=== PATIENT | female | born 1955 | race Caucasian/White ===

== ENCOUNTER 2020-02-06 08:22 | Outpatient (CLI) | payer OTHER, SELFPAY ==
[2020-02-06 12:36] LABS: Basophils Absolute Auto 0.1 K/mm3 (0.0-0.1); Basophils Percent Auto 1.2 % (0.2-1.2); Eosinophils Absolute Auto 0.1 K/mm3 (0-0.3); Eosinophils Percent Auto 2.1 % (0-4.4); Hematocrit 40.3 % (37.0-47.0); Hemoglobin 13.7 g/dL (12.0-15.0); Immature Granulocyte Absolute 0.01 K/mm3 (0.00-0.031); Immature Granulocyte Percent A 0.2 % (0-0.5); Lymphocytes Percent Auto 47.4 % (18.3-44.2); Mean Corpuscular Hemoglobin 33.7 pg (26-34); Mean Corpuscular Volume 99.3 fl (80-100); Monocytes Absolute Auto 0.7 K/mm3 (0.1-0.6); Monocytes Percent Auto 13.6 % (2.6-8.5); Neutrophils Absolute Auto 1.7 K/mm3 (1.3-6.7); Neutrophils Percent Auto 35.5 % (45.5-73.1); Platelet Count Result 303 k/mm3 (150-375); Red Blood Count 4.06 M/mm3 (4.2-5.4); Red Cell Distribution Width 11.6 % (11.5-14.5); White Blood Count 4.9 K/mm3 (4.5-10.0)
[2020-02-06 12:41] LABS: Add Urine Microscopic? YES; Appearance Urine Cloudy (Clear); Bacteria Urine 4+ /hpf; Bilirubin Urine Negative (Negative); Blood Urine Negative (Negative); Color Urine Yellow (Yellow); Glucose Urine UA Negative (Negative); Ketones Urine Trace mg/dL (Negative); Leukocyte Esterase Ur Negative LEU/UL (Negative); Mucus Urine Rare /lpf; Nitrate Urine Negative (Negative); Protein Urine Negative (Negative); RBC Urine 0-2 /hpf (0-2); Specific Grav Ur 1.019 (1.001-1.035); Squamous Epithelial Cell Urine Many /hpf (Few); Urobilinogen Urine Negative mg/dL (<2.0); WBC Urine 0-3 /hpf
[2020-02-06 12:42] LABS: Alanine Aminotransferase 36 U/L (4-35); Albumin Level 4.3 g/dL (3.5-5.1); Alkaline Phosphatase 70 U/L (38-126); Anion Gap 7 mmol/L (8-16); Aspartate Amino Transferase 37 U/L (14-36); Bilirubin,Total 0.4 mg/dL (0.2-1.3); Blood Urea Nitrogen 14 mg/dL (7-17); Calcium 9.1 mg/dL (8.4-10.2); Carbon Dioxide 28 mmol/L (22-30); Chloride 101 mmol/L (98-107); Cholesterol 210 mg/dL (0-200); Estimated Glomerular Filt Rate > 60; Glucose 98 mg/dL (65-105); HDL Direct 94 mg/dL; Potassium 4.4 mmol/L (3.4-5.0); Sodium 136 mmol/L (137-145); Triglycerides 94 mg/dL (<150)
[2020-02-06 12:43] LABS: Hemoglobin A1C 5.5 % (<5.7)
[2020-02-06 12:53] LABS: LDL Cholesterol Direct 96 mg/dL
[2020-02-06 13:38] LABS: Free T4 Free Thyroxine 0.91 ng/mL (0.78-2.19)
== END 2020-02-06 08:23 | disposition home or self-care (01) ==
PROVIDERS: Visit Provider Physician Assistant
DX: Z00.01 Encounter for general adult medical examination with abnormal findings (principal); Z13.6 Encounter for screening for cardiovascular disorders; Z13.1 Encounter for screening for diabetes mellitus
CPT/HCPCS: 36415; 80053; 80061; 81001; 83036; 84439; 84443; 85025

== ENCOUNTER 2020-04-13 08:43 | Outpatient (CLI) | payer OTHER, SELFPAY ==
[2020-04-13 10:51] LABS: Hematocrit 42.2 % (37.0-47.0); Hemoglobin 14.3 g/dL (12.0-15.0); Mean Corpuscular HGB Conc 33.9 g/dl (32-36); Mean Corpuscular Hemoglobin 32.9 pg (26-34); Mean Platelet Volume 8.6 fl (7.4-10.4); Platelet Count Result 326 k/mm3 (150-375); Red Blood Count 4.35 M/mm3 (4.2-5.4); Red Cell Distribution Width 11.8 % (11.5-14.5); White Blood Count 5.2 K/mm3 (4.5-10.0)
[2020-04-13 11:41] LABS: Anion Gap 10 mmol/L (8-16); Blood Urea Nitrogen 16 mg/dL (7-17); Calcium 9.7 mg/dL (8.4-10.2); Carbon Dioxide 27 mmol/L (22-30); Chloride 99 mmol/L (98-107); Estimated Glomerular Filt Rate > 60; Glucose 99 mg/dL (65-105); Potassium 4.8 mmol/L (3.4-5.0); Sodium 136 mmol/L (137-145)
[2020-04-13 11:49] LABS: INR 0.8; Partial Thromboplastin Time 24.8 SECONDS (22.3-36.8); Prothrombin Time 11.8 Seconds (11.1-14.7)
[2020-04-13 11:53] LABS: Hemoglobin A1C 5.4 % (<5.7)
== END 2020-04-13 08:44 | disposition home or self-care (01) ==
PROVIDERS: PCP Physician Assistant
DX: M17.9 Osteoarthritis of knee, unspecified (principal); M16.9 Osteoarthritis of hip, unspecified
CPT/HCPCS: 36415; 80048; 83036; 85027; 85610; 85730

== ENCOUNTER 2020-06-22 12:30 | Outpatient (RCR) | payer OTHER, SELFPAY ==
--- NOTE | 2020-04-28 16:48 | PTOPEVAL ---
PHYSICAL THERAPY EVALUATION AND PLAN OF CARE Thank you for referring Ubaldo Preston to [facility].? The patient is scheduled to be seen for therapy? 2x/week for 4-8 weeks. Please review, sign, date and return this plan of care BOSSMAN. I agree with and certify that the following plan of care is medically necessary. Referring Physician Date Attending Provider: Benji Cowart Evaluation Diagnosis left hip arthroplasty on 2020 Subjective Information Ubaldo is here today for a pre- Query Text:As Reported By Patient/ operative appointment prior to Family left WILMER on 05/03/2020. She has 2 steps to enter the home. Her major concern is getting in and out of bed. She will have standard hip precautions following the surgery and the surgey is posterior approach. She will have this as an outpatient procedure. Self Report Pain Assessment Left Hip(s) Reported Pain Level 8 Pain Description Aching Pain Score Pain Score 8: Self Report Interventions Used Interventions Used By Clinicians Exercise Pain Relief Interventions Used By Elevation,Medication Patient Lower Extremity Range of Motion Hip Range of Motion Left Hip Flexion Range of Motion - Active 85 Hip Extension Range of Motion - Passive 5 Bed Mobility Assessment Bed Mobility Bed Mobility Assistive Devices Leg Turkey Pinner Bed Type Mat Overall Bed Mobility Ability Standby Assistance Supine to Sit Ability Standby Assistance Sit to Supine Ability Standby Assistance Cues Needed for Bed Mobility Tactile,Verbal,Visual Bed Mobility Comments educated patient on how to enter/exit bed without breaking hip precautions; educated on how to use a lift to bring leg up and bring leg down; discussed standard hip precautions at length including avoiding greater than 90deg of hip flexion, hip internal rotation, and hip adduction and discussed the various scenerios in which those precautions might be broken Gait Assessment Gait Assessment Ambulation Assistive Devices Walker, Wheeled Weight Bearing Status - Left As Tolerated Weight Bearing Status - Right Full Maintains Weight Bearing Status Yes
--- NOTE | 2020-05-05 14:46 | PTOPEVAL ---
PHYSICAL THERAPY POST-SURGICAL PLAN OF CARE UPDATE Thank you for referring Ubaldo Preston to [facility].? Current patient schedule for physical therapy 2x/week for 4 weeks continues to be appropriate. Please review, sign, date and return this plan of care BOSSMAN. I agree with and certify that the following plan of care is medically necessary. Referring Physician Date Attending Provider: Benji Cowart Progress Diagnosis left hip arthroplasty on 2020 Subjective Information Ubaldo is here today 2 days s/p Query Text:As Reported By Patient/ left WILMER. She reports today Family is better for pain than yesterday. Her daughter is helping her to move her left in and out of bed, but is getting around the home with her walker fine. Self Report Pain Assessment Left Hip(s) Reported Pain Level 5 Pain Description Aching Pain Score Pain Score 5: Self Report Interventions Used Interventions Used By Clinicians Exercise Pain Relief Interventions Used By Elevation,Medication Patient Lower Extremity Range of Motion Hip Range of Motion Left Hip Flexion Range of Motion - Active 85 Hip Extension Range of Motion - Passive 0 Hip Range of Motion Comments patient was concerned about left hip IR when in supine - assessed positioning today and she appears in neutral; instructed that she is to pay attention with performing exercises to ensure neutral hip Lower Extremity Muscle Strength Testing Hip Strength Left Hip Flexion Strength 3- Fair - Hip Extension Strength 3- Fair - Hip Abduction Strength 3 Fair Hip Strength Comments difficulty performing AROM due to pain - strength should progress quickly Palpation Assessment Palpation Palpation edema noted to left thigh and glutes with mild warmth to touch Bed Mobility Assessment Bed Mobility Bed Mobility Assistive Devices Leg Gasoline Attendant Bed Type Mat Overall Bed Mobility Ability Minimum Assistance X 1 Supine to Sit Ability Contact Guard Sit to Supine Ability Minimum Assistance X 1 Cues Needed for Bed Mobility Tactile,Verbal,Visual Bed Mobility Comments assist of left LE on and off of mat table Gait Assessment Gait Assessment Ambulation Assistive Devices Walker, Wheele
--- NOTE | 2020-06-01 11:53 | PTOPEVAL ---
PHYSICAL THERAPY PROGRESS REPORT AND PLAN OF CARE UPDATE Thank you for referring Ubaldo Preston to [facility].? The patient is scheduled to be seen for therapy? 1x/week for 2-4 weeks. Please review, sign, date and return this plan of care BOSSMAN. I agree with and certify that the following plan of care is medically necessary. Referring Physician Date Attending Provider: Benji Cowart Progress Diagnosis left hip arthroplasty on 2020 Subjective Information Ubaldo is here today 4 weeks s/ Query Text:As Reported By Patient/ p left WILMER. She saw PA Family yesterday - Ubaldo will be allowed to roll on her side and use a regular toilet at 8 weeks s/p WILMER. She was okayed to drive. Ubaldo continues to have concerns about feeling like the left leg in longer than the right - the PA was not concerned until 12 weeks post op. Ubaldo is no longer using assistive device. Self Report Self Report Pain Level 0 Pain Score Pain Score 0: Self Report Lower Extremity Range of Motion Hip Range of Motion Left Reason Not Measured Surgery Precautions Hip Flexion Range of Motion - Active 90 Hip Extension Range of Motion - Passive 0 Hip Range of Motion Comments . Lower Extremity Muscle Strength Testing Hip Strength Left Hip Flexion Strength 3+ Fair + Hip Extension Strength 3 Fair Hip Abduction Strength 3 Fair Hip Strength Comments . Knee Strength Left Knee Flexion Strength 4 Good Knee Extension Strength 4 Good Palpation Assessment Palpation Palpation no edema noted to left LE at this time; incision well healed with mild scar tissue noted under incision site Gait Assessment Gait Assessment Ambulation Assistive Devices None Weight Bearing Status - Left Full Weight Bearing Status - Right Full Maintains Weight Bearing Status Yes Ambulation Surface Level,Smooth Ambulation Ability Independent Cues Needed For Ambulation Verbal,Tactile Additional Ambulation Comments . Gait Pattern Assessment Gait Pattern Antalgic Gait Other Gait Observations right hip hike in swing phase; right hip drop in stance phase PT Clinical Summary Ubaldo is a 65 yo female presenting to outpatient
--- NOTE | 2020-06-22 13:20 | PTOPEVAL ---
Thank you for referring Ubaldo Preston to [facility].? Pt has received 13 therapy visits to address impairments related to hip surgery. She has achieved maximal potential with skilled therapy services at this time. DC skilled therapy with Ubaldo to continue with her home program. Please review, sign, date and return this discharge summary BOSSMAN. I agree with and certify that the following plan of care is medically necessary. Referring Physician Date Attending Provider: Benji Cowart Physical Therapy Discharge Note Problem Diagnosis left hip arthroplasty on 2020 Additional Evaluation Detail Ubaldo will be allowed to roll on her side and use a regular toilet at 8 weeks s/p WILMER Subjective Information She c/o left leg feeling heavy Query Text:As Reported By Patient/ with soreness with standing Family and prolonged sitting in the car. She does not feel like leg is normal. She is performing her HEP daily. She continues to struggle with getting out of a chair.She questions when to RTW. She negotiates Pain Assessment Self Report Pain Level 0 Pain Score Lower Extremity Muscle Strength Testing Hip Strength Left Hip Flexion Strength 3+ Fair + Hip Extension Strength 3 Fair Hip Abduction Strength 3 Fair Hip Strength Comments able to perform full range bridge for glut strength Knee Strength Left Knee Flexion Strength 4+ Good + Knee Extension Strength 5 Normal Knee Strength Comments hamstring tested in supine position Balance Assessment Timed Up and Go Test (TUG) (Seconds) 14 Assistive Devices None 5 Time Sit to Stand Time in Seconds 17 5 Time Sit to Stand Comments no changes in muscle soreness, Gait Assessment Gait Pattern Antalgic Gait,Wide Based Gait Gait Pattern Observed Decreased Stride Length - Left ,Decreased Stride Length - Right,Decreased Weight Shift - Left,No Heel Strike - Left,No Heel Strike - Right,Trunk Lateral Lean - Left Other Gait Observations right hip hike in swing phase 2 Minute Walk Total Distance Walked (feet) 195 2 Minute Walk Gait Speed Score (feet/ 1.62 second) Stair Climbing Assessment Stair Climbing Assistive Devices Railings Weight Bearing Status - Left As Tolerated Weight Bearing Status - Right Full Maintains Weight Bearing Status
== END 2020-06-23 08:53 | disposition home or self-care (01) ==
LOC: ANHPT 12:30
PROVIDERS: PCP Physician Assistant
DX: Z47.1 Aftercare following joint replacement surgery (principal); Z96.642 Presence of left artificial hip joint
CPT/HCPCS: 97110; 97116; 97140; 97161; 97530

== ENCOUNTER 2020-10-10 16:15 | Outpatient (RCR) | payer OTHER, SELFPAY ==
--- NOTE | 2020-09-13 16:38 | PTOPEVAL ---
PHYSICAL THERAPY EVALUATION AND PLAN OF CARE Thank you for referring Ubaldo Preston to [facility].? The patient is scheduled to be seen for therapy?for follow-up in one month. Please review, sign, date and return this plan of care BOSSMAN. I agree with and certify that the following plan of care is medically necessary. Referring Physician Date Attending Provider: Kenney Anguiano, PA-C Evaluation Diagnosis history of WILMER Onset 04/2020 Subjective Information Ubaldo is here today with Query Text:As Reported By Patient/ history of left WILMER. She was Family initially discharged from PT in June 2020. She reports she is not having a lot of pain, but she still limps. She feels as though the left leg is longer than the right. She tried to wear a heel lift in the right shoe, but by the end of the day it made her right hip and back hurt so she wondered if the lift made her uneven or if it evened her out and she is not used to it. Self Report Pain Assessment Left Hip(s) Reported Pain Level 0 Pain Score Pain Score 0: Self Report Interventions Used Interventions Used By Clinicians Exercise Lower Extremity Range of Motion Hip Range of Motion Left Hip Flexion Range of Motion - Active 115 Hip Medial Rotation - Passive 20 Hip Lateral Rotation - Passive 35 Hip Range of Motion Comments right hip internal rotation: 35deg right hip external rotation: 60deg Lower Extremity Muscle Strength Testing Hip Strength Left Hip Flexion Strength 4+ Good + Hip Extension Strength 4 Good Hip Abduction Strength 4 Good Ankle Strength Left Ankle Dorsiflexion Strength 4 Good Ankle Eversion Strength 4 Good Ankle Inversion Strength 4+ Good + Ankle Strength Comments 04/10 unilateral left heel raises Muscle Length Testing Muscle Length Testing Gregorio Test Shortened Muscles Short (L) Iliopsoas,Short (L) Ilial Tib Band Wade's Test Hip Muscle Length (L) Moderate Tightness Gastrocnemius Length (R) Moderate Tightness,(L) Moderate Tightness Gait Assessment Gait Pattern Assessment Other Gait Observations launches off of right foot with early heel off; occasional toe drag of left General Exercise General Exercises
--- NOTE | 2020-10-10 16:28 | PTOPEVAL ---
PHYSICAL THERAPY DISCHARGE NOT E Thank you for referring Ubaldo Preston to [facility].? Please review, sign, date and return this plan of care BOSSMAN. I agree with and certify that the following plan of care is medically necessary. Referring Physician Date Attending Provider: Kenney Anguiano, PA-C Discharge Diagnosis history of WILMER Onset 04/2020 Subjective Information Ubaldo is here today with Query Text:As Reported By Patient/ history of left WILMER. Ubaldo Family reports that she feels like she is week by week improving and that getting better is taking longer than she thought it would take. Self Report Pain Assessment Left Hip(s) Reported Pain Level 0 Pain Score Pain Score 0: Self Report Interventions Used Interventions Used By Clinicians Exercise Lower Extremity Muscle Strength Testing Hip Strength Left Hip Flexion Strength 5 Normal Hip Extension Strength 4 Good Hip Abduction Strength 5 Normal Hip Medial Rotation Strength 3+ Fair + Hip Lateral Rotation Strength 4 Good Ankle Strength Left Ankle Dorsiflexion Strength 5 Normal Ankle Eversion Strength 5 Normal Ankle Inversion Strength 5 Normal Ankle Strength Comments unilateral left heel raises Gait Assessment Gait Pattern Assessment Other Gait Observations overall improvement of gait pattern from a month ago; continues to have a mild left foot launch General Exercise General Exercises Side Left Exercise Location hip Exercise Type Active Exercise Description reviewed all exercises for HEP Query Text:Record Sets, Reps, -sitting with ball between Resistance, and Position knees: unilateral hip Internal rotation [id number] side - states she cannot perform at home well; we replaced this exercise for HEP with resisted prone internal rotation and resisted reverse clamshells -runner's gastroc stretch [id number] each side -toe on wall soleus stretch [id number] -incline gastroc stretch [id number] x2 -prone hip internal rotation resisted red band
== END 2020-10-11 08:56 | disposition home or self-care (01) ==
LOC: ANHPT 16:15
PROVIDERS: PCP Physician Assistant; Visit Provider Physician Assistant
DX: Z47.1 Aftercare following joint replacement surgery (principal); Z96.642 Presence of left artificial hip joint
CPT/HCPCS: 97110; 97161

== ENCOUNTER 2020-10-21 08:12 | Outpatient (CLI) | payer OTHER, SELFPAY ==
--- NOTE | ~2020-10-21 | DEXA_ITS ---
Bone Density Report Name: Ubaldo Preston Age: 65 Sex: Female Ethnicity: White Date of : 1955 Indication: postmenopausal; cancer; hysterectomy; Referring Provider: Janina Bishop Study: Bone densitometry was performed. Exam Date: October 21, 2020 Accession number: [id number] Bone Density: Region BMD T-score Z-score Classification AP Spine (L1, L2, L3) 1.143 1.1 2.9 Normal Femoral Neck (Right) 0.911 0.6 2.1 Normal Total Hip (Right) 1.105 1.3 2.6 Normal World Health Organization criteria for BMD impression classify patients as: Normal (T-score at or above -1.0), Osteopenia (T-score between -1.0 and -2.5), or Osteoporosis (T-score at or below -2.5). 10-year Fracture Risk: FRAX not reported because: All T-scores for Spine Total, Hip Total, Femoral Neck at or above -1.0 Previous Exams: Region Exam Age BMD T-score BMD Change BMD Change Date g/cm2 vs Baseline vs Previous AP Spine(L1, L2, L3) 10/21/2020 65 1.143 1.1 -0.214(-15.8%) -0.007(-0.6%) 10/14/2014 59 1.150 1.2 -0.207(-15.3%) -0.018(-1.5%)# 01/08/2012 56 1.168 1.4 -0.189(-13.9%) -0.033(-2.7%)# 10/08/2008 53 1.201 1.7 -0.156(-11.5%) -0.029(-2.3%)* 03/28/2006 51 1.229 1.9 -0.128(-9.4%)* -0.019(-1.5%) 02/17/2004 48 1.249 2.1 -0.109(-8.0%)* -0.130(-9.5%)* 11/24/2001 46 1.379 3.3 0.022(1.6%) 0.022(1.6%) 01/13/2001 45 1.357 3.1 Total Hip(Right) 10/21/2020 65 1.105 1.3 -0.235(-17.5%) -0.069(-5.9%)* 10/14/2014 59 1.174 1.9 -0.166(-12.4%) -0.012(-1.0%)# 01/08/2012 56 1.185 2.0 -0.154(-11.5%) -0.014(-1.1%)# 10/08/2008 53 1.199 2.1 -0.141(-10.5%) 0.004(0.3%) 03/28/2006 51 1.195 2.1 -0.144(-10.8%) -0.105(-8.0%)* 02/17/2004 48 1.299 2.9 -0.040(-3.0%)* -0.032(-2.4%)* 11/24/2001 46 1.331 3.2 -0.008(-0.6%) -0.008(-0.6%) 01/13/2001 45 1.339 3.3 *Denotes significance at 95% confidence level, LSC for AP Spine = 0.022 g/cm2, LSC for Total Hip = 0.027 g/cm2 Clinical Information Provided by Patient: Has used the following medications: Vitamin D Has the following medical conditions: Cancer, Hysterectomy Patient maximum height was 65 Menopause Age: 47 Drinks caffeinated beverages Onset of menses at age 12 Number of children 3 Impression: The patient has normal bone mass. The BMD for the Total Hip(Right) decreased, changing by -5.9% since the last DXA exam. Discussion: LOW RISK OF FRACTURE; BONE DENSITY IS WELL ABOVE THE MINIMUM DESIRABLE L
== END 2020-10-21 08:13 | disposition home or self-care (01) ==
PROVIDERS: PCP Physician Assistant; Visit Provider Student in an Organized Health Care Education/Training Program
DX: Z78.0 Asymptomatic menopausal state (principal)
CPT/HCPCS: 77080

== ENCOUNTER 2021-02-02 08:20 | Outpatient (CLI) | payer OTHER, SELFPAY ==
[2021-02-02 09:56] LABS: Basophils Absolute Auto 0.1 K/mm3 (0.0-0.1); Basophils Percent Auto 1.4 % (0.2-1.2); Eosinophils Absolute Auto 0.1 K/mm3 (0-0.3); Hematocrit 43.7 % (37.0-47.0); Hemoglobin 14.7 g/dL (12.0-15.0); Immature Granulocyte Absolute 0.01 K/mm3 (0.00-0.031); Immature Granulocyte Percent A 0.3 % (0-0.5); Lymphocytes Percent Auto 45.1 % (18.3-44.2); Mean Corpuscular HGB Conc 33.6 g/dl (32-36); Mean Corpuscular Hemoglobin 33.6 pg (26-34); Mean Corpuscular Volume 99.8 fl (80-100); Mean Platelet Volume 8.6 fl (7.4-10.4); Monocytes Absolute Auto 0.5 K/mm3 (0.1-0.6); Monocytes Percent Auto 14.4 % (2.6-8.5); Neutrophils Absolute Auto 1.3 K/mm3 (1.3-6.7); Neutrophils Percent Auto 36.8 % (45.5-73.1); Platelet Count Result 283 k/mm3 (150-375); Red Blood Count 4.38 M/mm3 (4.2-5.4); Red Cell Distribution Width 11.7 % (11.5-14.5); White Blood Count 3.6 K/mm3 (4.5-10.0)
[2021-02-02 16:43] LABS: Add Urine Microscopic? YES; Appearance Urine Clear (Clear); Bacteria Urine Trace /hpf; Bilirubin Urine Negative (Negative); Blood Urine 1+ (Negative); Color Urine Yellow (Yellow); Glucose Urine UA Negative (Negative); Hemoglobin A1C 5.4 % (<5.7); Ketones Urine Negative (Negative); Leukocyte Esterase Ur Negative LEU/UL (Negative); Mucus Urine Few /lpf; Nitrate Urine Negative (Negative); Protein Urine 1+ mg/dL (Negative); RBC Urine 0-2 /hpf (0-2); Specific Grav Ur 1.017 (1.001-1.035); Squamous Epithelial Cell Urine Many /hpf (Few); Urobilinogen Urine Negative mg/dL (<2.0); WBC Urine 0-3 /hpf
[2021-02-02 16:48] LABS: Alanine Aminotransferase 57 U/L (4-35); Albumin Level 4.8 g/dL (3.5-5.1); Alkaline Phosphatase 71 U/L (38-126); Anion Gap 8 mmol/L (8-16); Aspartate Amino Transferase 85 U/L (14-36); Bilirubin,Total 0.5 mg/dL (0.2-1.3); Blood Urea Nitrogen 9 mg/dL (7-17); Calcium 9.6 mg/dL (8.4-10.2); Carbon Dioxide 26 mmol/L (22-30); Chloride 103 mmol/L (98-107); Cholesterol 238 mg/dL (0-200); Estimated Glomerular Filt Rate > 60; Glucose 94 mg/dL (65-110); Potassium 4.5 mmol/L (3.4-5.0); Sodium 137 mmol/L (137-145); Triglycerides 123 mg/dL (<150)
[2021-02-02 16:56] LABS: LDL Cholesterol Direct 96 mg/dL
[2021-02-02 17:10] LABS: Thyroid Stimulating Hormone Reflex 0.081 uIU/mL (0.465-4.68)
[2021-02-02 17:23] LABS: HDL Direct 117 mg/dL
[2021-02-02 18:07] LABS: Free T4 Free Thyroxine Reflex 1.18 ng/dL (0.78-2.19)
[2021-02-02 19:00] LABS: Total Triiodothyronine (T3) 1.27 NG/ML (0.97-1.69)
== END 2021-02-02 08:21 | disposition home or self-care (01) ==
LOC: ANHVADLAB 08:28
PROVIDERS: PCP Physician Assistant; Visit Provider Physician Assistant
DX: Z13.1 Encounter for screening for diabetes mellitus (principal); Z79.899 Other long term (current) drug therapy; Z13.220 Encounter for screening for lipoid disorders
CPT/HCPCS: 36415; 80048; 80061; 80076; 81001; 83036; 84439; 84443; 84480; 85025

== ENCOUNTER 2021-04-25 00:36 | Day surgery (SDC) | payer OTHER, SELFPAY ==
[2021-04-07 13:23] VITALS: BMI 31.8
[2021-04-25 11:12] VITALS: BP 156/94; PULSE 88; RESP 18; TEMP 37; O2SAT 99; BMI 30.4
[2021-04-25] MEDS: LACTATED RINGERS 1,000 ML 150 ML IV CONT (11:18)
--- NOTE | 2021-04-25 11:28 | P.PNAN_ITS ---
Anes - Initial Pre Proc Eval Procedure: Operation Date: 04/25/21 12:30 Proposed Procedures p Screening Colonoscopy - Baldomero Luong MD Date/Time: 04/25/21 11:28 Surgeon: Baldomero Luong MD Pre Op Diagnosis: neoplasm screening Patient Data Age: 66 Gender: F Height: 1.63 m Weight: 80.5 kg Last Vital Signs Temp 98.6 F 04/25/21 11:12 Pulse 88 04/25/21 11:12 Resp 18 04/25/21 11:12 BP 156/94 H 04/25/21 11:12 Pulse Ox 99 04/25/21 11:12 Allergies Allergy/AdvReac Type Severity Reaction Status Date / Time cephalexin Allergy Intermediate Rash Verified 04/07/21 13:24 codeine AdvReac Mild GI UPSET Verified 04/07/21 13:24 Home Medications Medication Instructions Recorded Confirmed Type amlodipine 5 mg PO DAILY 04/07/21 04/07/21 History Patient hx anesthesia problems: none Family hx anesthesia problems: none Results Review: All pre-operative results and documents have been reviewed as part of the pre-operative evaluation. COUNT INCLUDES THE [facility] Past Medical History Medical History Breast cancer History of vaginal delivery Surgical History Surgical History H/O hemorrhoidectomy H/O total hysterectomy History of left hip replacement History of mastectomy Hx of tonsillectomy Family History Family History Father Family history of lung cancer Other Family history of malignant neoplasm Social History Social History Smoking status: Never smoker Second hand tobacco smoke exposure: No Alcohol intake: current Drinks per week: 3 Substance use: never Substance use type: does not use Living arrangements: with family Spiritual care concerns: No Anes - Eval Final PreProcedure Day of Procedure 04/25/21 11:28 Patient weight: obese Heart: regular rate and rhythm Lungs: clear to auscultation Airway: Mallampati scale class II Neurological: alert and oriented Last oral intake: >/= 8 hours ASA classification: III Emergent: no Anesthetic plan: proceed Anesthesia type and monitoring: general GIVS and standard monitoring Results Review: All pre-operative results and documents have been reviewed as part of the pre-operative evaluation. Informed Consent: The patient's anesthetic plan and its attendant risks and benefits were discussed with the patient/family/POA. Questions were solicited and answers provided to the satisfaction of the patient/family/POA.
--- NOTE | 2021-04-25 11:35 | WPDGICN ---
Assessment and Plan Assessment and plan (1) Encounter for screening colonoscopy: Code(s): Z12.11 - Encounter for screening for malignant neoplasm of colon Status: Acute Assessment and Plan: Patient presents for screening colonoscopy. She appears to be at average risk for colon polyps. GI Consult Note Consult date/time: 04/25/21 11:35 HPI: Ubaldo Preston is a 66 year old female presents for screening colonoscopy. Patient's current weight appetite bowel movements are normal. She denies abdominal pain. She has had no bleeding. Family history noncontributory. Last screening colonoscopy was 15 years ago. Patient has recently had surgery for breast cancer. Has had a left hip replacement. Review of Systems Review of Systems: All systems reviewed & are unremarkable except as noted in HPI and below PMFSH Past Medical History Medical History Breast cancer History of vaginal delivery Surgical History Surgical History H/O hemorrhoidectomy H/O total hysterectomy History of left hip replacement History of mastectomy Hx of tonsillectomy Family History Family History Father Family history of lung cancer Other Family history of malignant neoplasm Social History Social History Smoking status: Never smoker Second hand tobacco smoke exposure: No Alcohol intake: current Drinks per week: 3 Substance use: never Substance use type: does not use Living arrangements: with family Spiritual care concerns: No Meds Home Medications and Allergies Home Medications Medication Instructions Recorded Confirmed Type amlodipine 5 mg PO DAILY 04/07/21 04/07/21 History Allergies Allergy/AdvReac Type Severity Reaction Status Date / Time cephalexin Allergy Intermediate Rash Verified 04/07/21 13:24 codeine AdvReac Mild GI UPSET Verified 04/07/21 13:24 Vital Signs Vital Signs - 24 hr 04/25/21 11:12 Temperature 98.6 F Pulse Rate 88 Respiratory Rate 18 Blood Pressure 156/94 H Pulse Oximetry 99 Exam Narrative: Physical exam reveals patient be alert. Vital signs stable. HEENT exam is unremarkable. Patient is anicteric. Lungs are clear to auscultation and percussion. Heart is without murmur or extra sounds. Abdominal exam bowel sounds present soft nontender with no organomegaly. Digital external rectal exam is normal.
[2021-04-25 12:05] VITALS: BP 100/60; PULSE 82; RESP 29; O2SAT 99
[2021-04-25 12:15] VITALS: BP 127/82; PULSE 81; RESP 23; O2SAT 100
[2021-04-25 12:25] VITALS: BP 131/84; PULSE 74; RESP 20; O2SAT 98
== END 2021-04-25 12:32 | disposition home or self-care (01) ==
PROVIDERS: PCP Physician Assistant; Visit Provider Internal Medicine Gastroenterology
PROC: 0DJD8ZZ Inspection of Lower Intestinal Tract, Via Natural or Artificial Opening Endoscopic (ICD-10-PCS; CPT 45378; principal; 2021-04-25 12:30)
DX: Z12.11 Encounter for screening for malignant neoplasm of colon (principal); K64.8 Other hemorrhoids; K57.30 Diverticulosis of large intestine without perforation or abscess without bleeding; Z85.3 Personal history of malignant neoplasm of breast; E66.9 Obesity, unspecified; Z68.30 Body mass index [BMI] 30.0-30.9, adult
CPT/HCPCS: 45378; J3370; J7120

== ENCOUNTER 2021-09-27 07:30 | Outpatient (CLI) | payer OTHER, SELFPAY ==
[2021-09-27 14:08] LABS: Basophils Absolute Auto 0.1 K/mm3 (0.0-0.1); Basophils Percent Auto 0.9 % (0.2-1.2); Eosinophils Absolute Auto 0.1 K/mm3 (0-0.3); Eosinophils Percent Auto 1.5 % (0-4.4); Hematocrit 43.4 % (37.0-47.0); Hemoglobin 14.6 g/dL (12.0-15.0); Immature Granulocyte Absolute 0.01 K/mm3 (0.00-0.031); Immature Granulocyte Percent A 0.2 % (0-0.5); Lymphocytes Absolute Auto 2.37 K/mm3 (0.9-3.2); Lymphocytes Percent Auto 44.5 % (18.3-44.2); Mean Corpuscular HGB Conc 33.6 g/dl (32-36); Mean Corpuscular Hemoglobin 33.3 pg (26-34); Mean Corpuscular Volume 99.1 fl (80-100); Mean Platelet Volume 8.7 fl (7.4-10.4); Monocytes Absolute Auto 0.7 K/mm3 (0.1-0.6); Monocytes Percent Auto 12.6 % (2.6-8.5); Neutrophils Absolute Auto 2.1 K/mm3 (1.3-6.7); Neutrophils Percent Auto 40.3 % (45.5-73.1); Platelet Count Result 283 k/mm3 (150-375); Red Blood Count 4.38 M/mm3 (4.2-5.4); Red Cell Distribution Width 11.6 % (11.5-14.5); White Blood Count 5.3 K/mm3 (4.5-10.0)
[2021-09-27 14:40] LABS: Alanine Aminotransferase 50 U/L (6-35); Albumin Level 4.9 g/dL (3.5-5.1); Alkaline Phosphatase 68 U/L (38-126); Anion Gap 7 mmol/L (8-16); Aspartate Amino Transferase 58 U/L (14-36); Bilirubin,Total 0.7 mg/dL (0.2-1.3); Blood Urea Nitrogen 11 mg/dL (7-17); Calcium 9.3 mg/dL (8.4-10.2); Carbon Dioxide 28 mmol/L (22-30); Chloride 99 mmol/L (98-107); Estimated Glomerular Filt Rate > 60; Glucose 93 mg/dL (65-110); Potassium 4.1 mmol/L (3.4-5.0); Sodium 134 mmol/L (137-145)
== END 2021-09-27 07:31 | disposition home or self-care (01) ==
PROVIDERS: PCP Physician Assistant; Visit Provider Physician Assistant
DX: R79.9 Abnormal finding of blood chemistry, unspecified (principal); R74.01 Elevation of levels of liver transaminase levels; R94.6 Abnormal results of thyroid function studies
CPT/HCPCS: 36415; 80053; 84443; 85025

== ENCOUNTER → 2022-08-22 09:45 | Outpatient (CLI) | payer MEDICARE, OTHER, SELFPAY ==
--- NOTE | ~2022-08-22 | US_ITS ---
Limited Abdominal Sonogram: Real-time sonographic imaging of the right upper quadrant was performed. Clinical History: Elevated transaminases Findings: The liver appears mildly echogenic, with no evidence of mass lesion or bile duct dilatatio n. Main portal vein demonstrates normal direction of flow. The gallbladder is well distended, and meka ears normal with no evidence of gallstone or wall thickening. The common bile duct measures 5 mm. Th e visualized pancreas, aorta, and IVC are unremarkable. Impression: Diffuse fatty infiltration of the liver. Reviewed, dictated and finalized at location M. Impression: Diffuse fatty infiltration of the liver.
== END ==
PROVIDERS: PCP Physician Assistant; Visit Provider Physician Assistant
DX: R74.01 Elevation of levels of liver transaminase levels (principal); K76.0 Fatty (change of) liver, not elsewhere classified
CPT/HCPCS: 76705

== ENCOUNTER 2022-08-22 10:09 | Outpatient (CLI) | payer MEDICARE, OTHER, SELFPAY ==
[2022-08-22 15:11] LABS: Appearance Urine Clear (Clear); Bilirubin Urine Negative (Negative); Blood Urine Negative (Negative); Color Urine Yellow (Yellow); Glucose Urine UA Negative (Negative); Ketones Urine Negative (Negative); Leukocyte Esterase Ur Negative LEU/UL (NEGATIVE); Nitrate Urine Negative (Negative); Protein Urine Negative (Negative); Specific Grav Ur 1.006 (1.001-1.035); Urobilinogen Urine 0.2 mg/dL (<2.0)
[2022-08-22 15:13] LABS: Hematocrit 45.6 % (37.0-47.0); Hemoglobin 14.9 g/dL (12.0-15.0); Mean Corpuscular HGB Conc 32.7 g/dl (32-36); Mean Corpuscular Hemoglobin 33.7 pg (26-34); Mean Corpuscular Volume 103.2 fl (80-100); Mean Platelet Volume 9.2 fl (7.4-10.4); Platelet Count Result 273 k/mm3 (150-375); Red Blood Count 4.42 M/mm3 (4.2-5.4); Red Cell Distribution Width 12.2 % (11.5-14.5); White Blood Count 4.6 K/mm3 (4.5-10.0)
[2022-08-22 15:16] LABS: Alanine Aminotransferase 66 U/L (6-35); Albumin Level 4.5 g/dL (3.5-5.1); Alkaline Phosphatase 74 U/L (38-126); Anion Gap 7 mmol/L (8-16); Aspartate Amino Transferase 74 U/L (14-36); Bilirubin,Total 0.7 mg/dL (0.2-1.3); Blood Urea Nitrogen 10 mg/dL (7-17); Calcium 9.4 mg/dL (8.4-10.2); Carbon Dioxide 28 mmol/L (22-30); Chloride 99 mmol/L (98-107); Cholesterol 244 mg/dL (0-200); Estimated Glomerular Filt Rate > 60; Glucose 88 mg/dL (65-110); HDL Direct 106 mg/dL; Potassium 4.1 mmol/L (3.4-5.0); Sodium 134 mmol/L (137-145); Triglycerides 88 mg/dL (<150)
[2022-08-22 15:20] LABS: Add Urine Microscopic? NO
[2022-08-22 15:27] LABS: LDL Cholesterol Direct 108 mg/dL
[2022-08-22 15:44] LABS: Thyroid Stimulating Hormone < 0.015 uIU/mL (0.465-4.680)
[2022-08-26 04:05] LABS: Triiodothyronine T3 Free 3.3 pg/mL (2.3-4.2)
== END 2022-08-22 10:10 | disposition home or self-care (01) ==
LOC: ANHGOSHLAB 10:11
PROVIDERS: PCP Physician Assistant; Visit Provider Physician Assistant
DX: R74.01 Elevation of levels of liver transaminase levels (principal); R94.6 Abnormal results of thyroid function studies; Z79.899 Other long term (current) drug therapy; Z13.220 Encounter for screening for lipoid disorders; R79.9 Abnormal finding of blood chemistry, unspecified
CPT/HCPCS: 36415; 80053; 80061; 81003; 82248; 84439; 84443; 84481; 85027

== ENCOUNTER 2023-01-07 12:49 | Outpatient (CLI) | payer MEDICARE, OTHER, SELFPAY ==
[2023-01-07 20:55] LABS: Folic Acid 7.1 ng/mL (2.76->20)
[2023-01-10 14:44] LABS: Thyrotropin Receptor Antibody <1.00 IU/L (<=2.00)
[2023-01-11 04:58] LABS: Thyroid Peroxidase Antibodies 2 IU/mL (<9)
== END 2023-01-07 12:50 | disposition home or self-care (01) ==
PROVIDERS: PCP Physician Assistant; Visit Provider Physician Assistant
DX: R94.6 Abnormal results of thyroid function studies (principal); G62.9 Polyneuropathy, unspecified
CPT/HCPCS: 36415; 82607; 82746; 83519; 84443; 86376

== ENCOUNTER 2023-09-25 13:57 | Outpatient (CLI) | payer MEDICARE, SELFPAY ==
--- NOTE | ~2023-09-25 | XR_ITS ---
3 VIEWS LUMBAR SPINE Ordering provider: Aysha Anguiano, JERO History: . Lumbar radiculopathy . Comparison: March 06, 2007 FINDINGS: VERTEBRAL BODIES: No visible fracture . Minimal Anterolisthesis at the level of L4-L5. DISK SPACES: Narrowing of the disc space at L1-L2, L3-L4, L4-L5 and L5-S1. Multilevel facet degenerat isiah disease. SOFT TISSUES: Normal. Aortic calcification. Left hip arthroplasty. Normal sacroiliac joints. IMPRESSION: No acute osseous abnormality lumbar spine. Anterolisthesis of the level of L4-L5. Consider follow up MRI lumbar spine if there is concern for spinal stenosis/neural impingement. Reviewed, dictated and finalized at location A. IMPRESSION: No acute osseous abnormality lumbar spine. Anterolisthesis of the level of L4-L 5. Consider follow up MRI lumbar spine if there is concern for spinal stenosis/sofia ral impingement.
--- NOTE | ~2023-09-25 | XR_ITS ---
EXAMINATION: XR chest 2V DATE: 09/25/2023 14:20 INDICATION: Cough. TECHNIQUE: Frontal and lateral views of the chest were obtained. COMPARISON: Chest 2 views 08/04/2016 FINDINGS: There is mild atelectasis in left lower lung zone. There is a small left pleural effusion. No pneumothorax. The heart size is normal. There are surgical clips in the chest wall. IMPRESSION: 1. Mild atelectasis in left lower lung zone. 2. Small left pleural effusion. Reviewed, dictated and finalized at location A.
== END 2023-09-25 13:58 ==
PROVIDERS: PCP Physician Assistant; Visit Provider Physician Assistant
DX: M43.16 Spondylolisthesis, lumbar region (principal); J98.11 Atelectasis; J90 Pleural effusion, not elsewhere classified
CPT/HCPCS: 71046; 72100

== ENCOUNTER 2023-09-27 14:17 | Outpatient (CLI) | payer MEDICARE, SELFPAY ==
--- NOTE | ~2023-09-27 | CT_ITS ---
EXAMINATION: CTA chest PE protocol DATE: 09/27/2023 15:15 INDICATION: Dyspnea. TECHNIQUE: Computed tomography angiography (CTA) of the chest was performed with 100 mL Omnipaque-350 intravenous contrast timed to evaluate the pulmonary arteries. Coronal maximum intensity projection 3D-reconstructions were created by the technologist. Automated exposure control and iterative reconst ruction technique were employed. The dose-length product was 427.07 mGy-cm. COMPARISON: Chest 2 views 09/25/2023. FINDINGS: There are airspace opacities in left lower lobe. There are several scattered nodules in the lungs measuring up to 7 mm. There is mild dependent atelectasis. There is peripheral radiation fibro sis in left lung. There is a small left pleural effusion. The heart size is normal. There are coronar y artery calcifications. No pericardial effusion. There is no pulmonary embolus. There is mediastinal and bilateral hilar lymphadenopathy. There is left internal mammary lymphadenopathy. There are surgi leonard clips in left axilla. There are changes of mastectomies. There is a moderate-sized sliding hiatal hernia. There is diffuse hepatic steatosis. There is a lytic lesion of left second rib. There are ly tic lesions in the left fourth rib and the sternum. IMPRESSION: 1. No pulmonary embolus. 2. Airspace opacities in left lung lower lobe, consistent with atelectasis versus pneumonia. 3. Pulmonary nodules, mediastinal and bilateral hilar lymphadenopathy, and bone lesions, consistent w ith metastatic disease. Reviewed, dictated and finalized at location A. IMPRESSION: 1. No pulmonary embolus. 2. Airspace opacities in left lung lower lobe, consistent with atelectasis vers us pneumonia. 3. Pulmonary nodules, mediastinal and bilateral hilar lymphadenopathy, and bone lesions, consistent with metastatic disease.
[2023-09-27 15:08] LABS: Estimated Glomerular Filt Rate > 60
== END 2023-09-27 14:18 | disposition home or self-care (01) ==
LOC: ANHIMG 14:18
PROVIDERS: PCP Physician Assistant; Visit Provider Physician Assistant
DX: R06.00 Dyspnea, unspecified (principal); R91.8 Other nonspecific abnormal finding of lung field
CPT/HCPCS: 71275; Q9967

== ENCOUNTER 2023-10-10 12:06 | Outpatient (CLI) | payer MEDICARE, SELFPAY ==
--- NOTE | ~2023-10-10 | PE_ITS ---
EXAMINATION: PET skull to mid thigh DATE: 10/10/2023 13:42 INDICATION: Metastatic malignant neoplasm of the lung. TECHNIQUE: Blood glucose level was 116 mg/dL. 10.424 mCi of 18-fluorodeoxyglucose (18-FDG) was admini stered i.v. Low dose computed tomography (CT) images were acquired from the base of the brain to the proximal thighs for attenuation correction and anatomic localization. Automated exposure control was employed. Dose-length product (DLP) was 1083 mGy-cm. Positron emission tomography (PET) images were a cquired in the same distribution. COMPARISON: Chest CT 09/27/2023 FINDINGS: Head/neck: There is left supraclavicular lymphadenopathy with increased activity. The largest node me asures 3.6 x 2.1 cm with maximum SUV of 16.3. Chest: There are numerous pulmonary nodules with increased activity in the lungs. There is mild atele ctasis bilaterally. There is a small left pleural effusion. There is a moderate-sized sliding hiatal hernia. The heart size is normal. There are coronary artery calcifications. No pericardial effusion. There is mediastinal,, bilateral hilar, left subpectoral, and left axillary lymphadenopathy with incr eased activity. There are scattered lytic lesions of bone with increased activity. Abdomen/pelvis/proximal thighs: There is diffuse hepatic steatosis. There are 2 foci of increased act ivity in the liver without abnormal CT correlate. The gallbladder, spleen, pancreas, adrenal glands, and kidneys are normal. There are no dilated loops of bowel. There is diverticulosis of the colon wit hout evidence of diverticulitis. There are no pathologically enlarged lymph nodes. There is no free i ntraperitoneal fluid. There is a left hip arthroplasty. There are scattered lytic lesions of bone wit h increased activity. IMPRESSION: 1. Pulmonary nodules, chest lymphadenopathy, left supraclavicular lymphadenopathy, bone lesions, and liver lesions with increased activity, consistent with metastatic disease. Consider ultrasound-guided core needle biopsy of a lytic lesion in the sternum. Reviewed, dictated and finalized at location A. IMPRESSION: 1. Pulmonary nodules, chest lymphadenopathy, left supraclavicular lymphadenopat hy, bone lesions, and liver lesions with increased activity, consistent with me tastatic disease. Consider ultrasound-guided core needle biopsy of a lytic lesi on in the sternum.
[2023-10-10 12:21] LABS: Glucose Point of Care 116 mg/dl (65-105)
== END 2023-10-10 12:07 | disposition home or self-care (01) ==
PROVIDERS: PCP Physician Assistant; Visit Provider Physician Assistant
DX: C78.02 Secondary malignant neoplasm of left lung (principal)
CPT/HCPCS: 78815; A9552